=== PATIENT | male | born 1945 | race Caucasian/White ===

== ENCOUNTER 2016-11-20 07:05 | Day surgery (SDC) | payer MEDICARE ==
--- NOTE | 2016-11-19 12:52 | PCM.HPANE ---
Patient Data Surgeon Admitting Provider: Attending Provider:Rikki Gutierrez MD Primary Care Physician:Brian Mccoy MD Other Provider:Sabina Diazingham Anesthesia Reason for Visit Screening, Barretts Esophagus Ht/WT & BMI Body Mass Index Allergies Coded Allergies: No Known Allergies (Unverified , 11/19/16) Past Anesthesia History Anesthesia History: Denies:: Abnormal Airway, Anesthesia Reactions, Difficult Intubation, Fam Anesthesia Reaction, Fam Malignant Hypertherm, Malignant Hyperthermia Medications Reported Medications Ranitidine 300 Mg [id number] Mg PO HS Ref 0 11/19/16 Ramipril 5 Mg Capsule5 Mg PO DAILY 11/19/[address] (Protonix)40 Mg Hbevvg23 Mg PO DAILY Ref 0 11/19/16 Metoprolol Succinate ER 25 Mg Tab.er.24h25 Mg PO DAILY Ref 0 11/19/16 Hydrochlorothiazide 12.5 Mg Fqosmod01.5 Mg PO DAILY 30 Days Ref 0 11/19/16 Atorvastatin (Lipitor)20 Mg Lhaqtc63 Mg PO DAILY Ref 0 11/19/16 Aspirin 325 Mg Khslas886 Mg PO DAILY #1 BOTTLE 11/19/16 History History of ENT Problems?: Yes HEENT History: Denies:: Abnormal Airway Cataracts Difficult Intubation Dysphagia Glaucoma Hearing Problem Sinus Problem TMJ Denture Type: None Teeth Condition: Within Normal Limits Hx of Heart Problems?: Yes Cardiovascular History: Denies:: AICD Abdominal Aortic Aneurism Atrial Fibrillation Cardiac Surgery Chest Pain Congestive Heart Failure Coronary Artery Disease Edema Heart Murmur Hypertension Irregular Heartbeat Pacemaker Peripheral Vascular Rheumatic Fever Thrombophlebitis Valvular Heart Disease Hx of Respiratory Problem?: Yes Respiratory History: Denies:: Asthma COPD Chest Surgery Cough Dyspnea Emphysema Hemoptysis Oxygen Administration Pneumonia Pulmonary Embolism Tuberculosis Use of C-PAP Machine Use of Inhalers / NEBS Hx Neurologic Problems?: Yes Neurological History: Denies:: Alzheimer's Disease CVA Dementia Dizziness Headaches Multiple Sclerosis Parkinson's Disease Peripheral Neuropathy Seizures TIA Hx of GI Problems?: Yes Gastrointestinal History: Denies:: Cirrhosis Diverticulitis Gall Bladder Disease Gastroesphageal Reflux Gastrointestinal Bleeding Heartburn Hepatitis Hiatal Hernia Liver Disease Rectal Bleeding Hx of Problems?: Yes Genitourinary History: Denies:: HX of Hemodialysis Kidney Stones Urinary Tract Infection HX of Peritoneal Dialysis: Yes Male Hx: Denies:: Prostate Problems Scrotal Mass Testicular Surgery Skin History: Denies:: History Skin Disorders? Pressure Ulcers Hx Musculoskeletal Problems?: No Musculoskeletal History: Denies:: Back Injury Degenerative Joint Fibromyalgia Joint Replacement Musculoskeletal Trauma Myasthenia Gravis Osteoarthritis Rheumatoid Arthritis Systemic Lupus Psycho Social History: Denies:: Anxiety Bipolar Disorder Hx Depression Suicide Attempt Hx Surgeries?: Yes Other History: Denies:: Cancer Endocrine Disease Hospitalization Thyroid Disease History Blood Transfusions: Denies:: Accept Blood Products? Blood Transfuse Reaction Blood Transfusions Stop/Bang Risk Assessment Category Category 1A: Patient has history of documented sleep apnea, and HAS NOT received any narcotic, sedative or anesthesia administration during this stay. Category 1B: Patient has history of documented sleep apnea, and HAS received any narcotic , sedative or anesthesia administration during this stay Category 2: Patient has SUSPECTED Obstructive Sleep Apnea, and HAS received any narcotic , sedative or anesthesia administration during this stay. Category 3: Patient has SUSPECTED Obstructive Sleep Apnea and HAS NOT received narcotic, sedative or anesthesia administration during this stay. Category 4: Outpatient in Procedural Areas with known sleep apnea or who screen positive for High Risk via the STOP/BANG questionnaire. Exam Exam General Appearance: Alert, Oriented X3, Cooperative HEENT/AIRWAY: MP 2, Neck Movement (thick), Mouth Opening (wnl) Lungs: Clear to Auscultation Heart: Exam Unremarkable Plan Impression Patient chart reviewed, patient interviewed and anesthestic plan with risks, benefits, and alternatives discussed, and informed consent obtained. ASA Physical Status: ASA2 Mod Systemic Disease Anesthetic Plan: GA Bene/Risks/Altern/Consents: Yes HP Complete Prior to Induction: Yes Darrel Crowder MD Nov 19, 2016 12:51
[~2016-11-20] VITALS: Ht 185.4 cm; Wt 99.8 kg
[~2016-11-20 07:05] MED LIST: ASPI325T32 PO; ATOR20TA PO; HYDR12.5 PO; Lactated Ringer's 1,000 ML IV ONE; METO25TA99 PO; PANT40TA2 PO; RAMI5CAP PO; RANI300T4 PO
[2016-11-20] MEDS ORDERED: fentaNYL-PF 50 mCg/mL 2 mL Inj ONE (07:06)
[2016-11-20] MEDS ORDERED: Propofol 10,000 mCg/mL 20 mL Inj ONE (07:06)
[2016-11-20] MEDS ORDERED: Ondansetron 2 mg/mL 2 mL Inj ONE (07:06)
[2016-11-20 07:42] VITALS: BP 146/87; PULSE 76; RESP 17; O2SAT 98
[2016-11-20] MEDS ORDERED: Lactated Ringer's 1,000 ML IV SCH (08:17)
[2016-11-20] MEDS ORDERED: MetoCLOpramide 5 mg/mL 2 mL Inj IVPUSH PRN (08:20)
[2016-11-20] MEDS ORDERED: Ondansetron 2 mg/mL 2 mL Inj IVPUSH PRN (08:20)
[2016-11-20 08:29] VITALS: BP 127/72; PULSE 73; RESP 16; O2SAT 96
[2016-11-20 08:39] VITALS: BP 120/63; PULSE 62; RESP 16; O2SAT 92
--- NOTE | 2016-11-20 08:47 | PCM.ANEP1 ---
Post Anesthesia PACU Phase 1 Assessment Vital Signs Vital Signs Date Time Temp Pulse Resp B/P Pulse Ox O2 Delivery O2 Flow Rate FiO2 11/20/16 08:39 62 16 120/63 92 Room Air 11/20/16 08:29 73 16 127/72 96 Room Air 11/20/16 07:42 36.2 76 17 146/87 98 Room Air Anesthetic Administered: GA Level of Alertness: Awake, talking TURNER's with Equal Strength: Yes Pain: No Nausea or Vomiting: No CV Function & Hydration Stable: Yes Airway Device: Oxygen Delivery: Room Air Lungs: Normal Air Movement PACU Phase 2 Assessment Complications: No Follow up Care: No Patient Instructions Provided: N/A Darrel Crowder MD Nov 20, 2016 08:47
[2016-11-20 08:48] VITALS: BP 142/70; PULSE 76; RESP 16; O2SAT 96
--- NOTE | 2016-11-20 08:51 | ENDO ---
[address] [address] ENDOSCOPY PROCEDURE PATIENT: OSMAR YEUNG : 1945 MR#: [id number] ADMIT: 11/20/2016 JOB ID: [id number] DATE OF SERVICE: 11/20/2016 TITLE OF OPERATIONS: 1. Esophagogastroduodenoscopy with biopsy. 2. Colonoscopy. PREOPERATIVE DIAGNOSIS(ES): 1. History of Newman's esophagus. 2. Colorectal cancer screening. POSTOPERATIVE DIAGNOSIS(ES): 1. Irregular Z-line, distal esophagus at 40 cm from incisors. 2. Distal esophagitis. 3. Moderate nonerosive gastritis. 4. Multiple ulcers seen in the duodenal bulb, clean based, nonbleeding, largest size 5 mm, status post biopsy. 5. Normal colonoscopy. ANESTHESIA: Monitored anesthesia care. COMPLICATIONS: None. BLOOD LOSS: Minimal. DESCRIPTION OF PROCEDURE: After risks and benefits were explained to the patient, informed consent was obtained. After anesthesia administered, an upper endoscope was inserted in the mouth, intubated the esophagus, stomach, second portion of duodenum. Mucosa carefully examined. After procedure was done, the scope was withdrawn and the procedure terminated. Colonoscope was inserted from rectum to the cecum. Mucosa carefully examined. Prep of the patient was fair. After procedure was done, the scope was withdrawn and the procedure terminated. FINDINGS: Upon inspection of the esophagus, there was a distal esophagitis and also irregular Z-line at 40 cm from incisors. Upon entering the stomach, there were no masses or ulcers that were seen in the esophagus. Upon entering stomach, there was moderate nonerosive gastritis. No masses or ulcers were seen. Retroflexion was normal. Upon entering the duodenum, there were multiple clean based, nonbleeding ulcers, largest size 5 mm in the distal bulb which were biopsied. The duodenum, first and second portion were normal. Biopsies are taken antrum and body of the stomach and distal esophagus. Upon inspection of the anus, no masses, hemorrhoids, ulcers, fissures that were seen. Throughout the entire examination, there were no polyps, masses, or lesions. Retroflexion was normal. IMPRESSIONS: 1. Normal colonoscopy. 2. Distal esophagitis. 3. Irregular Z-line of the distal esophagus. 4. Moderate nonerosive gastritis. 5. Multiple duodenal and distal bulbar ulcers, clean based, nonbleeding, largest size 5 mm. RECOMMENDATION: 1. Await pathology results. 2. Increase Protonix to 40 mg by mouth twice a day. 3. Carafate 1 g by mouth four times a day. 4. Repeat EGD in eight weeks to document healing. 5. Repeat colonoscopy 10 years for colorectal cancer screening. 6. Follow up in GI clinic as needed.
--- NOTE | 2016-11-21 16:30 | PATH ---
SURGICAL PATHOLOGY Attending Physician:Rikki Gutierrez MD CASE STATUS: Signed Out PATIENT NAME: OSMAR YEUNG PID: [id number] : 1945 DATE COLLECTED:11/20/2016 15:06 SPECIMEN: 1: Duodenum, Biopsy 2: Stomach, Antrum, Biopsy 3: Gastric, Biopsy 4: Esophagus, Biopsy CLINICAL HISTORY: 1. DUODENAL BULB BX 2. ANTRUM BX 3. GASTRIC BODY BX 4. DISTAL ESOPHAGUS FINAL DIAGNOSIS: 1.DUODENAL BULB, BIOPSY: PORTIONS OF DUODENAL MUCOSA WITH PROMINENT FRANK' S GLANDS, SUGGESTIVE OF POSSIBLE FRANK' S GLAND HYPERPLASIA, IN THE APPROPRIATE CLINICAL AND IMAGING CONTEXT. Negative for dysplasia and malignancy. 2.ANTRUM, BIOPSY: PORTION OF ANTRAL AND BODY-TYPE MUCOSA X 1 WITH NO DIAGNOSTIC ABNORMALITY. PORTION OF ANTRAL AND BODY-TYPE MUCOSA X 1 WITH RARE, DILATED FUNDIC GLANDS, SUGGESTIVE OF POSSIBLE FUNDIC GLAND POLYP, IN THE APPROPRIATE CLINICAL AND IMAGING CONTEXT. Negative for Helicobacter pylori organisms by H&E stain. Negative for intestinal metaplasia. Negative for dysplasia and malignancy. 3.GASTRIC BODY BIOPSY: GASTRIC BODY-TYPE MUCOSA WITH NO DIAGNOSTIC ABNORMALITY. Negative for Helicobacter pylori organisms by H&E stain. Negative for intestinal metaplasia. Negative for dysplasia and malignancy. 4.DISTAL ESOPHAGUS, BIOPSY: SQUAMOCOLUMNAR JUNCTIONAL MUCOSA WITH SPECIALIZED INTESTINAL METAPLASIA CONSISTENT WITH FISHMAN' S ESOPHAGUS, IN THE APPROPRIATE CLINICAL SETTING. Negative for dysplasia and malignancy. ICD10 K22.7 GROSS DESCRIPTION: The specimen is received in four formalin filled containers labeled with the patient's name. 1). The specimen is sublabeled "duodenal bulb" is of 2 portions of tissue which aggregate to 0.3 x 0.3 x 0.2 CM. The specimen is entirely submitted in cassette 1A. 2). The specimen is sublabeled "antrum" and consists of 2 portions of tissue which aggregate to 0.4 x 0.3 x 0.2 CM. The specimen is entirely submitted in cassette 2A. 3). The specimen is sublabeled "gastric body" and consists of a 0.4 x 0.2 x 0.2 CM portion of tissue which is entirely submitted in cassette 3A. 4). The specimen is sublabeled "distal esophagus" and consists of 2 portions of tissue which aggregate to 0.3 x 0.2 x 0.2 CM. The specimen is entirely submitted in cassette 4A. 11/20/2016 DAC MICRO DESCRIPTION: See diagnosis. ICD-9 CODES: CPT CODES: 1: 70973 2: 57785 3: 24772 4: 38630 Electronically Signed Out Sasha Motta MD [facility] [address], [place] [address] Technical component performed at [facility], [address], [place], [address]
== END 2016-11-20 23:59 | disposition home or self-care (01) ==
LOC: END 07:05
PROVIDERS: ATTEND Internal Medicine Gastroenterology
DX: Z12.11 Encounter for screening for malignant neoplasm of colon (principal); K22.70 Barrett's esophagus without dysplasia; K29.70 Gastritis, unspecified, without bleeding; K20.9 Esophagitis, unspecified; K26.9 Duodenal ulcer, unspecified as acute or chronic, without hemorrhage or perforation; I25.10 Atherosclerotic heart disease of native coronary artery without angina pectoris; E66.01 Morbid (severe) obesity due to excess calories; E78.1 Pure hyperglyceridemia; J44.9 Chronic obstructive pulmonary disease, unspecified; I10 Essential (primary) hypertension; Z87.891 Personal history of nicotine dependence; Z95.5 Presence of coronary angioplasty implant and graft; Z79.82 Long term (current) use of aspirin
CPT/HCPCS: 43239; G0121; J2250; J2405; J3010; J7120